=== PATIENT | female | born 1950 | race Caucasian/White ===

== ENCOUNTER → 2018-10-22 | Outpatient (CLI) | payer OTHER ==
[~2018-10-22] MED LIST: ACET1TAB12 PO
== END | disposition home or self-care (01) ==
LOC: RAH 11:33
PROVIDERS: ATTEND Family Medicine
DX: C79.51 Secondary malignant neoplasm of bone (principal); M48.02 Spinal stenosis, cervical region; R55 Syncope and collapse
CPT/HCPCS: 72141